=== PATIENT | female | born 1965 | race American Indian/Alaskan Native ===

== ENCOUNTER 2019-02-06 13:59 | Emergency (ER) | payer SELFPAY ==
--- NOTE | 2019-02-06 14:32 | Emergency Department Report ---
ED Abdominal Pain HPI - General Chief Complaint: Abdominal Pain Stated Complaint: ABD PAIN Time Seen by Provider: 02/06/19 14:29 Source: patient, EMS Mode of arrival: Stretcher Limitations: Language Barrier - History of Present Illness Initial Comments: Patient c/o RUQ abdominal pain which started this morning. MD Complaint: abdominal pain -: This morning Location: RUQ Radiation: back Severity: moderate Severity scale (0 -10): 6 Quality: sharp Consistency: constant Improves With: nothing Worsens With: nothing Associated Symptoms: nausea, vomiting. denies: diarrhea, fever, constipation, hematemesis, hematochezia, hematuria - Related Data Previous Rx's Medication Instructions Recorded Last Taken Type Ketorolac [Toradol] 10 mg PO Q8H PRN #15 tablet 02/06/19 Unknown Rx Ondansetron [Zofran Odt] 4 mg PO Q8HR PRN #20 tab.rapdis 02/06/19 Unknown Rx Allergies Allergy/AdvReac Type Severity Reaction Status Date / Time No Known Allergies Allergy Verified 02/06/19 14:14 ED Review of Systems ROS: Stated complaint: ABD PAIN Other details as noted in HPI Comment: All other systems reviewed and negative Constitutional: denies: chills, fever Eyes: denies: eye pain, eye discharge, vision change ENT: denies: ear pain, throat pain Respiratory: denies: cough, shortness of breath, wheezing Cardiovascular: denies: chest pain, palpitations Endocrine: no symptoms reported Gastrointestinal: abdominal pain, nausea, vomiting. denies: diarrhea, hemateme sis, hematochezia Genitourinary: denies: urgency, dysuria, discharge Musculoskeletal: denies: back pain, joint swelling, arthralgia Skin: denies: rash, lesions Neurological: denies: headache, weakness, paresthesias Psychiatric: denies: anxiety, depression Hematological/Lymphatic: denies: easy bleeding, easy bruising ED Past Medical Hx - Past Medical History Previous Medical History?: No - Surgical History Past Surgical History?: No - Social History Smoking Status: Never Smoker Substance Use Type: None - Medications Home Medications: Home Medications Medication Instructions Recorded Confirmed Last Taken Type Ketorolac [Toradol] 10 mg PO Q8H PRN #15 tablet 02/06/19 Unknown Rx Ondansetron [Zofran Odt] 4 mg PO Q8HR PRN #20 tab.rapdis 02/06/19 Unknown Rx ED Physical Exam - General Limitations: No Limitations General appearance: alert, in no apparent distress - Head Head exam: Present: atraumatic, normocephalic - Eye Eye exam: Present: normal appearance, PERRL, EOMI Pupils: Present: normal accommodation - ENT ENT exam: Present: normal exam, normal orophraynx, mucous membranes moist - Neck Neck exam: Present: normal inspection, full ROM. Absent: tenderness, meningismus - Respiratory Respiratory exam: Present: normal lung sounds bilaterally. Absent: respiratory distress, wheezes, rales, rhonchi - Cardiovascular Cardiovascular Exam: Present: regular rate, normal rhythm, normal heart sounds. Absent: systolic murmur, diastolic murmur, rubs, gallop - GI/Abdominal GI/Abdominal exam: Present: soft, tenderness (RUQ tenderness to palpation.), normal bowel sounds. Absent: distended - Rectal Rectal exam: Present: deferred - Extremities Exam Extremities exam: Present: normal inspection, full ROM, normal capillary refill. Absent: tenderness, pedal edema - Back Exam Back exam: Present: normal inspection, full ROM. Absent: tenderness, CVA tenderness (R), CVA tenderness (L) - Neurological Exam Neurological exam: Present: alert, oriented X3, CN II-XII intact - Psychiatric Psychiatric exam: Present: normal affect, normal mood - Skin Skin exam: Present: warm, dry, intact, normal color. Absent: rash ED Course Vital Signs 02/06/19 02/06/19 02/06/19 14:09 14:15 16:35 Temperature 97.7 F Pulse Rate 65 84 Respiratory 16 16 16 Rate Blood Pressure 133/68 Blood Pressure 133/68 120/78 [Left] O2 Sat by Pulse 98 98 Oximetry 02/06/19 18:20 Temperature Pulse Rate 60 Respiratory 16 Rate Blood Pressure Blood Pressure 118/67 [Left] O2 Sat by Pulse 99 Oximetry - Reevaluation(s) Reevaluation #1: 02/06/19 18:43 On reevaluation, patient is pain-free currently. I explained to her that she would need to follow-up with the general surgeon tomorrow morning for [place] evaluation and possible surgical intervention. - Consultations Consultation #1: 02/06/19 18:42 I consulted the General Surgeon talent development consultant Dr aFy and he recommend discharging patient with out patient follow up in his Clinic for further surgical evaluation. ED Medical Decision Making - Lab Data Result diagrams: 02/06/19 14:15 02/06/19 14:15 Lab Results 02/06/19 Range/Units 14:15 WBC 6.9 (4.5-11.0) K/mm3 RBC 4.51 (3.65-5.03) M/mm3 Hgb 14.5 H (10.1-14.3) gm/dl Hct 41.7 (30.3-42.9) % MCV 92 (79-97) fl MCH 32 (28-32) pg MCHC 35 H (30-34) % RDW 13.2 (13.2-15.2) % Plt Count 158 (140-440) K/mm3 Lymph % (Auto) 18.6 (13.4-35.0) % [place] % (Auto) 6.8 (0.0-7.3) % Eos % (Auto) 0.3 (0.0-4.3) % Baso % (Auto) 0.5 (0.0-1.8) % Lymph # 1.3 (1.2-5.4) K/mm3 [place] # 0.5 (0.0-0.8) K/mm3 Eos # 0.0 (0.0-0.4) K/mm3 Baso # 0.0 (0.0-0.1) K/mm3 Seg Neutrophils % 73.8 H (40.0-70.0) % Seg Neutrophils # 5.1 (1.8-7.7) K/mm3 Critical care attestation.: If time is entered above; I have spent that time in minutes in the direct care of this critically ill patient, excluding procedure time. ED Disposition Clinical Impression: RUQ abdominal pain, Nausea alone Cholelithiasis Qualifiers: Cholelithiasis location: gallbladder Cholecystitis presence: without cholecystitis Biliary obstruction: without biliary obstruction Qualified Code(s): K80.20 - Calculus of gallbladder without cholecystitis without obstruction Disposition: TO HOME OR SELFCARE Is pt being admited?: No Does the pt Need Aspirin: No Condition: Stable Instructions: Abdominal Pain (ED), Cholelithiasis (ED) Additional Instructions: Please follow up with Dr. fay (General Surgeon) tomorrow morning in his outpatient clinic. Return to the emergency room if her condition worsens. Prescriptions: Ketorolac [Toradol] 10 mg PO Q8H PRN #15 tablet PRN Reason: Pain Ondansetron [Zofran Odt] 4 mg PO Q8HR PRN #20 tab.rapdis PRN Reason: Nausea And Vomiting [facility] [Primary Care Provider] - 3-5 Days ANGELA FAY MD [Staff Physician] - 3-5 Days Time of Disposition: 18:46
[2019-02-06 14:34] LABS: Basophils % (Auto) 0.5 % (0.0-1.8); Eosinophils % (Auto) 0.3 % (0.0-4.3); Hematocrit 41.7 % (30.3-42.9); Hemoglobin 14.5 gm/dl (10.1-14.3); Lymphocytes # (Auto) 1.3 K/mm3 (1.2-5.4); Lymphocytes % (Auto) 18.6 % (13.4-35.0); Mean Corpuscular HGB Conc 35 % (30-34); Mean Corpuscular Volume 92 fl (79-97); Monocytes # (Auto) 0.5 K/mm3 (0.0-0.8); Monocytes % (Auto) 6.8 % (0.0-7.3); Platelet Count 158 K/mm3 (140-440); Red Blood Count 4.51 M/mm3 (3.65-5.03); Red Cell Distribution Width 13.2 % (13.2-15.2)
[2019-02-06] MEDS ORDERED: ZOFRAN IV ONE (14:42)
[2019-02-06] MEDS ORDERED: NACL 0.9% 1000 ML 1,000 ML IV ONE (14:42)
[2019-02-06] MEDS ORDERED: TORADOL IV ONE (14:43)
[2019-02-06 14:49] LABS: Bilirubin,Urine NEG (Negative); Blood,Urine NEG (Negative); Color,Urine Yellow (Yellow); Protein,Urine <15 mg/dL mg/dL (Negative); Urobilinogen,Urine < 2.0 mg/dL (<2.0)
[2019-02-06 14:49] LABS: BUN/Creatinine Ratio 10; Blood Urea Nitrogen 6 mg/dL (7-17); Calcium 9.3 mg/dL (8.4-10.2); Hemolysis Index 4
[2019-02-06 15:14] LABS: INR 1.04 (0.87-1.13); Partial Thromboplastin Time 25.8 Sec. (24.2-36.6)
[2019-02-06 15:26] LABS: Alanine Aminotransferase 23 units/L (7-56); Albumin 4.7 g/dL (3.9-5)
[2019-02-06 16:02] LABS: Bilirubin,Direct < 0.2 mg/dL (0-0.2)
--- NOTE | 2019-02-06 16:42 | Ultrasound Report ---
ULTRASOUND ABDOMEN, LIMITED (RIGHT UPPER QUADRANT) INDICATION: RUQ abdominal pain. COMPARISON: None available. FINDINGS: Pancreas: Visualized portion shows no significant abnormality. Liver: Normal. Gallbladder: There is a 2.6 cm stone in the gallbladder. No gallbladder wall edema or pericholecystic fluid. Bile ducts: Normal. Common Bile Duct measures 1-2 mm. Free fluid: None. Additional Findings: None. IMPRESSION: 1. 2.6 cm gallstone. No sonographic evidence of acute cholecystitis. No biliary dilatation. Signer Name: Nish Waters MD Signed: 02/06/2019 4:37 PM Workstation Name: [id number]
--- NOTE | 2019-02-06 16:53 | Cat Scan Report ---
CT ABDOMEN AND PELVIS WITH IV CONTRAST INDICATION: RUQ abdominal pain. COMPARISON: Abdominal ultrasound earlier today. TECHNIQUE: All CT scans at this facility use dose modulation, automated exposure control, iterative reconstructi on or weight based dosing, when appropriate, to reduce radiation dose to as low as reasonably achieva ble. FINDINGS: Lung Bases: Clear. Skeletal System: No acute abnormality. ABDOMEN: Liver: Normal. Gallbladder: There are 2 large stones in the gallbladder. The larger measures approximately 2 cm. The re is trace gallbladder wall edema. Bile Ducts: Normal. Pancreas: Normal. Spleen: Normal. Adrenals: Normal. Right Kidney: Normal. Left Kidney: Normal. Stomach and Bowel: Normal. Lymph Nodes: No significant adenopathy. Aorta: No significant abnormality. Additional Findings: None. PELVIS: Colon: Normal . Urinary Bladder and Distal Ureters: Normal. Appendix: Normal. Lymph Nodes: No significant adenopathy. Additional Findings: None. IMPRESSION: 1. There are 2 gallstones, the larger measures 2 cm. There is trace gallbladder wall edema. These fi ndings could be seen in the setting of mild acute cholecystitis. No intrahepatic or common duct dilat ation is seen. Signer Name: Nihs Waters MD Signed: 02/06/2019 4:49 PM Workstation Name: [id number]
[2019-02-06 18:20] VITALS: BP 118/67
== END 2019-02-06 19:07 | disposition home or self-care (01) ==
LOC: ED 13:59
DX: K80.20 Calculus of gallbladder without cholecystitis without obstruction (principal); Z79.899 Other long term (current) drug therapy
CPT/HCPCS: 36415; 74177; 76705; 80048; 80076; 81001; 83690; 85025; 85610; 85730; 96361; 96374; 96375; 99284; J1885; J2405; J7030; Q9967

== ENCOUNTER 2019-02-09 15:53 | Inpatient (IN) | payer OTHER ==
--- NOTE | 2019-02-09 16:23 | Event Note ---
ED Screening Note Date of service: 02/09/19 Time: 16:22 ED Screening Note: This is a 53 y.o. F. that presents to the ER with right sided abdominal pain. Patient diagnosed with Cholelithiasis 3 days ago and referral to General Surgeon. Patient states Dr. Jovel said it would be 1-2 weeks before completion of financial papers are approved for surgery. Patient states she is taking pain medication which help sometimes but pain returns shortly after. This initial assessment/diagnostic orders/clinical plan/treatment(s) is/are subject to change based on patients health status, clinical progression and re- assessment by fellow clinical providers in the ED. Further treatment and workup at subsequent clinical providers discretion. Patient/guardian urged not to elope from the ED as their condition may be serious if not clinically assessed and managed. Initial orders include: Labs
[2019-02-09 17:23] LABS: Basophils % (Auto) 0.4 % (0.0-1.8); Eosinophils # (Auto) 0.1 K/mm3 (0.0-0.4); Eosinophils % (Auto) 1.1 % (0.0-4.3); Hematocrit 37.8 % (30.3-42.9); Hemoglobin 12.9 gm/dl (10.1-14.3); Lymphocytes % (Auto) 8.1 % (13.4-35.0); Mean Corpuscular HGB Conc 34 % (30-34); Mean Corpuscular Volume 93 fl (79-97); Platelet Count 136 K/mm3 (140-440); Red Blood Count 4.05 M/mm3 (3.65-5.03); Red Cell Distribution Width 12.8 % (13.2-15.2)
[2019-02-09 17:39] LABS: Bacteria,Urine 4+ /HPF (Negative); Bilirubin,Urine NEG (Negative); Blood,Urine SM (Negative); Color,Urine Amber (Yellow); Mucus,Urine FEW /HPF; Urobilinogen,Urine < 2.0 mg/dL (<2.0)
[2019-02-09 17:46] LABS: Alanine Aminotransferase 14 units/L (7-56); Albumin 3.8 g/dL (3.9-5); BUN/Creatinine Ratio 11; Blood Urea Nitrogen 9 mg/dL (7-17); Calcium 9.4 mg/dL (8.4-10.2); Hemolysis Index 10
[2019-02-09 17:47] LABS: WBC,Urine > 182.0 /HPF (0.0-6.0)
[2019-02-09] MEDS ORDERED: NACL 0.9% 1000 ML 1,000 ML ONE (18:11)
[2019-02-09] MEDS ORDERED: MORPHINE IV ONE (20:07)
[2019-02-09] MEDS ORDERED: ZOSYN/NS 3.375GM/50ML 3.375 GM/50 ML BAG IV ONE (20:07)
[2019-02-09] MEDS ORDERED: NACL 0.9% 1000 ML 1,000 ML IV ONE (20:07)
[2019-02-09] MEDS ORDERED: ZOFRAN IV ONE (20:07)
--- NOTE | 2019-02-09 21:32 | Emergency Department Report ---
ED General Adult HPI - General Chief complaint: Abdominal Pain Stated complaint: ABD PAIN Time Seen by Provider: 02/09/19 16:20 Source: patient Mode of arrival: Ambulatory Limitations: No Limitations - History of Present Illness Initial comments: Patient presents to the emergency department with a chief complaint of increased abdominal pain over the last 2 days. Patient states she was here 2 days ago and was told that she had a gallstone. Patient states the medications she was given a home normal working. The patient speaks Croatian so an interpreter translator was used and her interpreter translator number is [id number]. -: Gradual Location: abdomen Severity scale (0 -10): 0 Consistency: constant Improves with: none Worsens with: none Associated Symptoms: denies other symptoms Treatments Prior to Arrival: none - Related Data Previous Rx's Medication Instructions Recorded Last Taken Type Ketorolac [Toradol] 10 mg PO Q8H PRN #15 tablet 02/06/19 02/09/19 Rx Ondansetron [Zofran Odt] 4 mg PO Q8HR PRN #20 tab.rapdis 02/06/19 02/09/19 Rx Allergies Allergy/AdvReac Type Severity Reaction Status Date / Time No Known Allergies Allergy Verified 02/06/19 14:14 ED Review of Systems ROS: Stated complaint: ABD PAIN Other details as noted in HPI Comment: All other systems reviewed and negative Constitutional: denies: chills, fever Eyes: denies: eye pain, eye discharge, vision change ENT: denies: ear pain, throat pain Respiratory: denies: cough, shortness of breath, wheezing Cardiovascular: denies: chest pain, palpitations Endocrine: no symptoms reported Gastrointestinal: abdominal pain. denies: nausea, diarrhea Genitourinary: denies: urgency, dysuria, discharge Musculoskeletal: denies: back pain, joint swelling, arthralgia Skin: denies: rash, lesions Neurological: denies: headache, weakness, paresthesias Psychiatric: denies: anxiety, depression Hematological/Lymphatic: denies: easy bleeding, easy bruising ED Past Medical Hx - Past Medical History Additional medical history: gallstones - Social History Smoking Status: Never Smoker Substance Use Type: None - Medications Home Medications: Home Medications Medication Instructions Recorded Confirmed Last Taken Type Ketorolac [Toradol] 10 mg PO Q8H PRN #15 tablet 02/06/19 02/09/19 02/09/19 Rx Ondansetron [Zofran Odt] 4 mg PO Q8HR PRN #20 tab.rapdis 02/06/19 02/09/19 02/09/19 Rx ED Physical Exam - General Limitations: No Limitations General appearance: alert, in no apparent distress - Head Head exam: Present: atraumatic, normocephalic - Eye Eye exam: Present: normal appearance - ENT ENT exam: Present: mucous membranes moist - Neck Neck exam: Present: normal inspection - Respiratory Respiratory exam: Present: normal lung sounds bilaterally. Absent: respiratory distress, wheezes, rales - Cardiovascular Cardiovascular Exam: Present: regular rate, normal rhythm. Absent: systolic murmur, diastolic murmur, rubs, gallop - GI/Abdominal GI/Abdominal exam: Present: soft, tenderness (Tenderness to palpation of right upper quadrant), normal bowel sounds. Absent: distended - Extremities Exam Extremities exam: Present: normal inspection - Back Exam Back exam: Present: normal inspection - Neurological Exam Neurological exam: Present: alert, oriented X3, CN II-XII intact. Absent: motor sensory deficit - Psychiatric Psychiatric exam: Present: normal affect, normal mood - Skin Skin exam: Present: warm, dry, intact, normal color, other (jaundice). Absent: rash ED Course Vital Signs 02/09/19 02/09/19 02/09/19 16:21 18:12 18:49 Temperature 97.4 F L 98.2 F Pulse Rate 75 92 H 68 Respiratory 18 18 18 Rate Blood Pressure 104/69 Blood Pressure 82/40 127/68 [Right] O2 Sat by Pulse 100 98 93 Oximetry 02/09/19 02/09/19 02/09/19 19:27 19:53 20:00 Temperature 98.1 F Pulse Rate 68 63 65 Respiratory 25 H 22 21 Rate Blood Pressure 111/61 117/69 Blood Pressure 107/65 [Right] O2 Sat by Pulse 99 100 100 Oximetry 02/09/19 02/09/19 02/09/19 20:20 20:50 22:00 Temperature Pulse Rate 67 Respiratory 16 16 13 Rate Blood Pressure 106/59 Blood Pressure [Right] O2 Sat by Pulse Oximetry ED Medical Decision Making - Lab Data Result diagrams: 02/09/19 16:52 02/09/19 16:52 Lab Results 02/09/19 02/09/19 02/09/19 Range/Units 16:52 16:52 17:15 WBC 12.9 H (4.5-11.0) K/mm3 RBC 4.05 (3.65-5.03) M/mm3 Hgb 12.9 (10.1-14.3) gm/dl Hct 37.8 (30.3-42.9) % MCV 93 (79-97) fl MCH 32 (28-32) pg MCHC 34 (30-34) % RDW 12.8 L (13.2-15.2) % Plt Count 136 L (140-440) K/mm3 Lymph % (Auto) 8.1 L (13.4-35.0) % [place] % (Auto) 8.0 H (0.0-7.3) % Eos % (Auto) 1.1 (0.0-4.3) % Baso % (Auto) 0.4 (0.0-1.8) % Lymph # 1.0 L (1.2-5.4) K/mm3 [place] # 1.0 H (0.0-0.8) K/mm3 Eos # 0.1 (0.0-0.4) K/mm3 Baso # 0.0 (0.0-0.1) K/mm3 Seg Neutrophils % 82.4 H (40.0-70.0) % Seg Neutrophils # 10.6 H (1.8-7.7) K/mm3 Sodium 129 L D (137-145) mmol/L Potassium 4.5 (3.6-5.0) mmol/L Chloride 92.8 L (98-107) mmol/L Carbon Dioxide 22 (22-30) mmol/L Anion Gap 19 mmol/L BUN 9 (7-17) mg/dL Creatinine 0.8 (0.7-1.2) mg/dL Estimated GFR > 60 ml/min BUN/Creatinine Ratio 11 % Glucose 139 H (65-100) mg/dL Lactic Acid (0.7-2.0) mmol/L Calcium 9.4 (8.4-10.2) mg/dL Total Bilirubin 2.10 H (0.1-1.2) mg/dL AST 16 (5-40) units/L ALT 14 (7-56) units/L Alkaline Phosphatase 93 (35-129) units/L Total Protein 8.0 (6.3-8.2) g/dL Albumin 3.8 L (3.9-5) g/dL Albumin/Globulin Ratio 0.9 % Lipase 24 (13-60) units/L Urine Color Mey (Yellow) Urine Turbidity Turbid (Clear) Urine pH 6.0 (5.0-7.0) Ur Specific [place] 1.015 (1.003-1.030) Urine Protein 30 mg/dl (Negative) mg/dL Urine Glucose (UA) Neg (Negative) mg/dL Urine Ketones Neg (Negative) mg/dL Urine Blood Sm (Negative) Urine Nitrite Neg (Negative) Urine Bilirubin Neg (Negative) Urine Urobilinogen < 2.0 (<2.0) mg/dL Ur Leukocyte Esterase Mod (Negative) Urine WBC (Auto) > 182.0 H (0.0-6.0) /HPF Urine RBC (Auto) 29.0 (0.0-6.0) /HPF U Epithel Cells (Auto) 19.0 H (0-13.0) /HPF Urine Bacteria (Auto) 4+ (Negative) /HPF Urine WBC Clumps 3+ /HPF Urine Mucus Few /HPF Urine Yeast (Budding) 1+ /HPF / Range/Units 20:03 WBC (4.5-11.0) K/mm3 RBC (3.65-5.03) M/mm3 Hgb (10.1-14.3) gm/dl Hct (30.3-42.9) % MCV (79-97) fl MCH (28-32) pg MCHC (30-34) % RDW (13.2-15.2) % Plt Count (140-440) K/mm3 Lymph % (Auto) (13.4-35.0) % [place] % (Auto) (0.0-7.3) % Eos % (Auto) (0.0-4.3) % Baso % (Auto) (0.0-1.8) % Lymph # (1.2-5.4) K/mm3 [place] # (0.0-0.8) K/mm3 Eos # (0.0-0.4) K/mm3 Baso # (0.0-0.1) K/mm3 Seg Neutrophils % (40.0-70.0) % Seg Neutrophils # (1.8-7.7) K/mm3 Sodium (137-145) mmol/L Potassium (3.6-5.0) mmol/L Chloride (98-107) mmol/L Carbon Dioxide (22-30) mmol/L Anion Gap mmol/L BUN (7-17) mg/dL Creatinine (0.7-1.2) mg/dL Estimated GFR ml/min BUN/Creatinine Ratio % Glucose (65-100) mg/dL Lactic Acid 1.40 (0.7-2.0) mmol/L Calcium (8.4-10.2) mg/dL Total Bilirubin (0.1-1.2) mg/dL AST (5-40) units/L ALT (7-56) units/L Alkaline Phosphatase (35-129) units/L Total Protein (6.3-8.2) g/dL Albumin (3.9-5) g/dL Albumin/Globulin Ratio % Lipase (13-60) units/L Urine Color (Yellow) Urine Turbidity (Clear) Urine pH (5.0-7.0) Ur Specific [place] (1.003-1.030) Urine Protein (Negative) mg/dL Urine Glucose (UA) (Negative) mg/dL Urine Ketones (Negative) mg/dL Urine Blood (Negative) Urine Nitrite (Negative) Urine Bilirubin (Negative) Urine Urobilinogen (<2.0) mg/dL Ur Leukocyte Esterase (Negative) Urine WBC (Auto) (0.0-6.0) /HPF Urine RBC (Auto) (0.0-6.0) /HPF U Epithel Cells (Auto) (0-13.0) /HPF Urine Bacteria (Auto) (Negative) /HPF Urine WBC Clumps /HPF Urine Mucus /HPF Urine Yeast (Budding) /HPF - Radiology Data Radiology results: report reviewed - Medical Decision Making Discussed results with the patient through interpreter translator code [id number] Spoke with Dr. Briggs who will see patient as a legal consultant Critical care attestation.: If time is entered above; I have spent that time in minutes in the direct care of this critically ill patient, excluding procedure time. ED Disposition Clinical Impression: Acute cholecystitis, UTI (urinary tract infection), Total bilirubin, elevated Disposition: DC-09 OP ADMIT IP TO THIS HOSP Is pt being admited?: Yes Does the pt Need Aspirin: No Condition: Fair [facility]OE[facility] [Primary Care Provider] - 3-5 Days
--- NOTE | 2019-02-09 22:32 | Ultrasound Report ---
ULTRASOUND ABDOMEN, LIMITED (RIGHT UPPER QUADRANT) INDICATION: ruq ab pain with elevated bili. COMPARISON: None available. FINDINGS: Pancreas: Visualized portion shows no significant abnormality. Liver: Normal. Gallbladder: Gallstones in neck of the gallbladder. The wall is thickened and edematous. Bile ducts: Normal. Common Bile Duct measures 0.1 mm. Free fluid: None. Additional Findings: None. IMPRESSION: Gallstone with suspected cholecystitis. Signer Name: Travon Phillips MD Signed: 02/09/2019 10:28 PM Workstation Name: [id number]
[2019-02-10] MEDS ORDERED: MORPHINE IV PRN (00:10)
[2019-02-10] MEDS ORDERED: TYLENOL PO PRN (00:10)
[2019-02-10] MEDS ORDERED: PERCOCET 5/325 PO PRN (00:10)
[2019-02-10] MEDS ORDERED: SODIUM CHLORIDE FLUSH SYRINGE 10 ML IV PRN (00:10)
[2019-02-10] MEDS ORDERED: ZOFRAN IV PRN (00:10)
--- NOTE | 2019-02-10 00:15 | History and Physical Report ---
History of Present Illness Chief complaint: Abdominal pain History of present illness: 53-year-old woman who presents to the emergency room with abdominal pain 2 days it has been associated with nausea and vomiting. Patient has a history of cholelithiasis in the past. She Dutch speaking and history was taking using an disc recordist. She was apparently seen in the emergency room a few days ago treated with pain medications and antiemetics and sent home. She presented worsening symptoms. Abdominal pain has been generalized and localizing to right upper quadrant, 8 out of 10, dull in nature, radiating to her scapula. Past medical history denies any chronic medical problems besides cholelithiasis Past surgical history denies major surgeries as Social history denies smoking alcohol or illicit drug use Family history; noncontributory, hypertension and a few family members Constitutional: Anorexia and weaknessEyes: bilateral: other (no complaint of visual problems.) Ears, nose, mouth and throat: mouth pain, no ear pain, no ear discharge, no decreased hearing, no nose pain, no nasal congestion, no bleeding gums, no dental pain, no dysphagia, no hoarseness, no sore throat Cardiovascular: no orthopnea, no palpitations, no rapid/irregular heart beat, no phlebitis Respiratory: no cough with sputum, no excessive sputum, no hemoptysis, no wheezing, no pleurisy, no pain Gastrointestinal: Anorexia, abdominal pain, nausea and vomiting Rectal: no pain, no incontinence, no bleeding Musculoskeletal: no neck stiffness, no neck pain, no shooting arm pain, no arm numbness/tingling, no low back pain, no shooting leg pain, no leg numbness/tingling Integumentary: no pruritis, no redness, no sores Neurological: no transient paralysis, no paralysis, no weakness Psychiatric: no memory loss, no change in sleep habits, no disorientation Endocrine: no heat intolerance, no polyphagia Hematologic/Lymphatic: no easy bruising, no easy bleeding Allergic/Immunologic: no allergic rhinitis Medications and Allergies Allergies Allergy/AdvReac Type Severity Reaction Status Date / Time No Known Allergies Allergy Verified 02/06/19 14:14 Home Medications Medication Instructions Recorded Confirmed Last Taken Type Ketorolac [Toradol] 10 mg PO Q8H PRN #15 tablet 02/06/19 02/09/19 02/09/19 Rx Ondansetron [Zofran Odt] 4 mg PO Q8HR PRN #20 tab.rapdis 02/06/19 02/09/19 02/09/19 Rx Active Meds: Active Medications Acetaminophen (Tylenol) 650 mg PO Q4H PRN PRN Reason: Pain MILD(1-3)/Fever >100.5/NICKERSON Sodium Chloride (Nacl 0.9% 1000 Ml) 1,000 mls @ 125 mls/hr IV DIRECT CYNDI Morphine Sulfate (Morphine) 2 mg IV Q4H PRN PRN Reason: Pain, Moderate (4-6) Ondansetron HCl (Zofran) 4 mg IV Q8H PRN PRN Reason: Nausea And Vomiting Oxycodone/Acetaminophen (Percocet 5/325) 1 tab PO Q6H PRN PRN Reason: Pain, Moderate (4-6) Sodium Chloride (Sodium Chloride Flush Syringe 10 Ml) 10 ml IV BID CYNDI Sodium Chloride (Sodium Chloride Flush Syringe 10 Ml) 10 ml IV PRN PRN PRN Reason: LINE FLUSH Exam - Constitutional Vitals: Temp Pulse Resp BP Pulse Ox 98.1 F 60 21 124/64 100 02/09/19 19:27 02/10/19 00:00 02/10/19 00:00 02/10/19 00:00 02/10/19 00:00 General appearance: Present: mild distress, well-nourished - EENT Eyes: Present: PERRL, scleral icterus ENT: hearing intact, clear oral mucosa - Neck Neck: Present: supple, normal ROM - Respiratory Respiratory effort: normal Respiratory: bilateral: CTA - Cardiovascular Heart Sounds: Present: S1 & S2. Absent: rub, click - Extremities Extremities: pulses symmetrical, No edema Peripheral Pulses: within normal limits - Abdominal General gastrointestinal: Present: soft, tender (and right upper quadrants), non-distended, normal bowel sounds Female genitourinary: Present: normal - Integumentary Integumentary: Present: clear, warm, dry - Musculoskeletal Musculoskeletal: gait normal, strength equal bilaterally - Psychiatric Psychiatric: appropriate mood/affect, intact judgment & insight - Neurologic Neurologic: CNII-XII intact, moves all extremities Results - Labs CBC & Chem 7: 02/09/19 16:52 02/09/19 16:52 Labs: Laboratory Last Values WBC 12.9 K/mm3 (4.5-11.0) H 02/09/19 16:52 RBC 4.05 M/mm3 (3.65-5.03) 02/09/19 16:52 Hgb 12.9 gm/dl (10.1-14.3) 02/09/19 16:52 Hct 37.8 % (30.3-42.9) 02/09/19 16:52 MCV 93 fl (79-97) 02/09/19 16:52 MCH 32 pg (28-32) 02/09/19 16:52 MCHC 34 % (30-34) 02/09/19 16:52 RDW 12.8 % (13.2-15.2) L 02/09/19 16:52 Plt Count 136 K/mm3 (140-440) L 02/09/19 16:52 Lymph % (Auto) 8.1 % (13.4-35.0) L 02/09/19 16:52 Knox % (Auto) 8.0 % (0.0-7.3) H 02/09/19 16:52 Eos % (Auto) 1.1 % (0.0-4.3) 02/09/19 16:52 Baso % (Auto) 0.4 % (0.0-1.8) 02/09/19 16:52 Lymph # 1.0 K/mm3 (1.2-5.4) L 02/09/19 16:52 Knox # 1.0 K/mm3 (0.0-0.8) H 02/09/19 16:52 Eos # 0.1 K/mm3 (0.0-0.4) 02/09/19 16:52 Baso # 0.0 K/mm3 (0.0-0.1) 02/09/19 16:52 Seg Neutrophils % 82.4 % (40.0-70.0) H 02/09/19 16:52 Seg Neutrophils # 10.6 K/mm3 (1.8-7.7) H 02/09/19 16:52 Sodium 129 mmol/L (137-145) L D 02/09/19 16:52 Potassium 4.5 mmol/L (3.6-5.0) 02/09/19 16:52 Chloride 92.8 mmol/L (98-107) L 02/09/19 16:52 Carbon Dioxide 22 mmol/L (22-30) 02/09/19 16:52 19 mmol/L 02/09/19 16:52 BUN 9 mg/dL (7-17) 02/09/19 16:52 0.8 mg/dL (0.7-1.2) 02/09/19 16:52 Estimated GFR > 60 ml/min 02/09/19 16:52 11 % 02/09/19 16:52 Glucose 139 mg/dL (65-100) H 02/09/19 16:52 Lactic Acid 1.40 mmol/L (0.7-2.0) 02/09/19 20:03 Calcium 9.4 mg/dL (8.4-10.2) 02/09/19 16:52 2.10 mg/dL (0.1-1.2) H 02/09/19 16:52 AST 16 units/L (5-40) 02/09/19 16:52 ALT 14 units/L (7-56) 02/09/19 16:52 93 units/L (35-129) 02/09/19 16:52 8.0 g/dL (6.3-8.2) 02/09/19 16:52 3.8 g/dL (3.9-5) L 02/09/19 16:52 0.9 % 02/09/19 16:52 24 units/L (13-60) 02/09/19 16:52 Mey (Yellow) 02/09/19 17:15 Turbid (Clear) 02/09/19 17:15 6.0 (5.0-7.0) 02/09/19 17:15 Ur Specific Hume 1.015 (1.003-1.030) 02/09/19 17:15 30 mg/dl mg/dL (Negative) 02/09/19 17:15 Neg mg/dL (Negative) 02/09/19 17:15 Neg mg/dL (Negative) 02/09/19 17:15 Sm (Negative) 02/09/19 17:15 Neg (Negative) 02/09/19 17:15 Neg (Negative) 02/09/19 17:15 < 2.0 mg/dL (<2.0) 02/09/19 17:15 Ur Leukocyte Esterase Mod (Negative) 02/09/19 17:15 > 182.0 /HPF (0.0-6.0) H 02/09/19 17:15 29.0 /HPF (0.0-6.0) 02/09/19 17:15 U Epithel Cells (Auto) 19.0 /HPF (0-13.0) H 02/09/19 17:15 4+ /HPF (Negative) 02/09/19 17:15 3+ /HPF 02/09/19 17:15 Few /HPF 02/09/19 17:15 1+ /HPF 02/09/19 17:15 - Imaging and Cardiology US - abdomen: image reviewed (cholecystitis) Assessment and Plan Assessment and plan: 53-year-old Dutch-speaking woman who presents to the hospital with nausea vomiting abdominal pain Sepsis Continue sepsis protocol Acute cholecystitis Gen. surgery consult, keep nothing by mouth for possible cholecystectomy in the a.m. UTI Antibiotics, follow-up urine cultures Hyponatremia Normal saline DVT prophylaxis Lovenox
[2019-02-10] MEDS ORDERED: NACL 0.9% 1000 ML 1,000 ML ONE (00:29)
[2019-02-10] MEDS: NACL 0.9% 1000 ML 1,000 ML IV SCH ×2 (00:41→22:33)
--- NOTE | 2019-02-10 07:33 | Consultation ---
History of Present Illness Consult date: 02/10/19 Reason for consult: gallstones Chief complaint: abdominal pain - History of present illness History of present illness: 53 yo F with no PMHx presented to ER with c/o severe, sharp, RUQ pain radiating to her back x 4 days. The pain started suddenly and is now constant. She had this pain before 3 years ago but it went away. This time when the pain initially started she presented to ER and was found to have gallstones. She was discharged with oral pain medication. She states this did not help with her pain so she returned to the ER. She did have 1-2 episodes of nausea and vomiting when the pain first started. No f/c, cp, sob. Past History Past Medical History: No medical history Past Surgical History: , Other (tubal ligation) Social history: no significant social history Family history: no significant family history Medications and Allergies Allergies Allergy/AdvReac Type Severity Reaction Status Date / Time No Known Allergies Allergy Verified 02/06/19 14:14 Home Medications Medication Instructions Recorded Confirmed Last Taken Type Ketorolac [Toradol] 10 mg PO Q8H PRN #15 tablet 02/06/19 02/09/19 02/09/19 Rx Ondansetron [Zofran Odt] 4 mg PO Q8HR PRN #20 tab.rapdis 02/06/19 02/09/19 02/09/19 Rx Active Meds: Active Medications Acetaminophen (Tylenol) 650 mg PO Q4H PRN PRN Reason: Pain MILD(1-3)/Fever >100.5/NICKERSON Enoxaparin Sodium (Lovenox) 40 mg SUB-Q QDAY CYNDI Sodium Chloride (Nacl 0.9% 1000 Ml) 1,000 mls @ 125 mls/hr IV DIRECT CYNDI Last Admin: 02/10/19 00:41 Dose: 125 mls/hr Documented by: Morphine Sulfate (Morphine) 2 mg IV Q4H PRN PRN Reason: Pain, Moderate (4-6) Last Admin: 02/10/19 02:11 Dose: 2 mg Documented by: Ondansetron HCl (Zofran) 4 mg IV Q8H PRN PRN Reason: Nausea And Vomiting Last Admin: 02/10/19 02:11 Dose: 4 mg Documented by: Oxycodone/Acetaminophen (Percocet 5/325) 1 tab PO Q6H PRN PRN Reason: Pain, Moderate (4-6) Sodium Chloride (Sodium Chloride Flush Syringe 10 Ml) 10 ml IV BID CYNDI Sodium Chloride (Sodium Chloride Flush Syringe 10 Ml) 10 ml IV PRN PRN PRN Reason: LINE FLUSH Review of Systems All systems: negative (10 pt ROS performed and negative except for that listed in HPI) Exam Vital Signs Temp Pulse Resp BP Pulse Ox 97.4 F L 75 18 104/69 100 02/09/19 16:21 02/09/19 16:21 02/09/19 16:21 02/09/19 16:21 02/09/19 16:21 Narrative exam: Gen: AAOx3. NAD ENT: no scleral icterus or conjunctival pallor CV; s1, S2+ resp; even and unlabored Abd: soft, ND, + TTP RUQ. no r/r/g Ext: no c/c/e Results - Labs 02/09/19 16:52 02/09/19 16:52 Abnormal lab results 02/09/19 02/09/19 02/09/19 Range/Units 16:52 16:52 17:15 WBC 12.9 H (4.5-11.0) K/mm3 RDW 12.8 L (13.2-15.2) % Plt Count 136 L (140-440) K/mm3 Lymph % (Auto) 8.1 L (13.4-35.0) % Jessamine % (Auto) 8.0 H (0.0-7.3) % Lymph # 1.0 L (1.2-5.4) K/mm3 Jessamine # 1.0 H (0.0-0.8) K/mm3 Seg Neutrophils % 82.4 H (40.0-70.0) % Seg Neutrophils # 10.6 H (1.8-7.7) K/mm3 Sodium 129 L D (137-145) mmol/L Chloride 92.8 L (98-107) mmol/L Glucose 139 H (65-100) mg/dL Total Bilirubin 2.10 H (0.1-1.2) mg/dL Albumin 3.8 L (3.9-5) g/dL Urine WBC (Auto) > 182.0 H (0.0-6.0) /HPF U Epithel Cells (Auto) 19.0 H (0-13.0) /HPF Diabetes panel 02/09/19 Range/Units 16:52 Sodium 129 L D (137-145) mmol/L Potassium 4.5 (3.6-5.0) mmol/L Chloride 92.8 L (98-107) mmol/L Carbon Dioxide 22 (22-30) mmol/L BUN 9 (7-17) mg/dL Creatinine 0.8 (0.7-1.2) mg/dL Glucose 139 H (65-100) mg/dL Calcium 9.4 (8.4-10.2) mg/dL AST 16 (5-40) units/L ALT 14 (7-56) units/L Alkaline Phosphatase 93 (35-129) units/L Total Protein 8.0 (6.3-8.2) g/dL Albumin 3.8 L (3.9-5) g/dL Calcium panel 02/09/19 Range/Units 16:52 Calcium 9.4 (8.4-10.2) mg/dL Albumin 3.8 L (3.9-5) g/dL Pituitary panel 02/09/19 Range/Units 16:52 Sodium 129 L D (137-145) mmol/L Potassium 4.5 (3.6-5.0) mmol/L Chloride 92.8 L (98-107) mmol/L Carbon Dioxide 22 (22-30) mmol/L BUN 9 (7-17) mg/dL Creatinine 0.8 (0.7-1.2) mg/dL Glucose 139 H (65-100) mg/dL Calcium 9.4 (8.4-10.2) mg/dL Adrenal panel 02/09/19 Range/Units 16:52 Sodium 129 L D (137-145) mmol/L Potassium 4.5 (3.6-5.0) mmol/L Chloride 92.8 L (98-107) mmol/L Carbon Dioxide 22 (22-30) mmol/L BUN 9 (7-17) mg/dL Creatinine 0.8 (0.7-1.2) mg/dL Glucose 139 H (65-100) mg/dL Calcium 9.4 (8.4-10.2) mg/dL Total Bilirubin 2.10 H (0.1-1.2) mg/dL AST 16 (5-40) units/L ALT 14 (7-56) units/L Alkaline Phosphatase 93 (35-129) units/L Total Protein 8.0 (6.3-8.2) g/dL Albumin 3.8 L (3.9-5) g/dL - Imaging CT scan - abdomen: report reviewed, image reviewed CT scan - pelvis: report reviewed, image reviewed US - abdomen: report reviewed, image reviewed Assessment and Plan 53 yo F with acute cholecystitis Plan; 1. repeat cmp, bilirubin stat 2. NPO 3. IVF 4. IV abx - on zosyn 5. DVT ppx 6. prn pain and nausea control 7. Discussed all risks, benefits, alternatives to cholecystectomy with patient and her family at the bedside using Valchemycigarette lighter repairer line. Questions answered and consent obtained. Possible OR today pending lab results. Thank you, please call with questions.
[2019-02-10 08:49] LABS: Alanine Aminotransferase 25 units/L (7-56); Albumin 3.4 g/dL (3.9-5); BUN/Creatinine Ratio 9; Bilirubin,Direct 0.6 mg/dL (0-0.2); Blood Urea Nitrogen 6 mg/dL (7-17); Calcium 8.8 mg/dL (8.4-10.2); Hemolysis Index 2
[2019-02-10] MEDS ORDERED: XYLOCAINE 1% 20 mL ONE (09:14)
[2019-02-10] MEDS ORDERED: MARCAINE 0.5% INFILTRATI ONE ×2 (09:14→11:09)
[2019-02-10] MEDS ORDERED: DILAUDID ONE (09:45)
[2019-02-10] MEDS ORDERED: VERSED ONE (09:46)
[2019-02-10] MEDS ORDERED: DIPRIVAN 10 MG/ML IV ONE (09:46)
[2019-02-10] MEDS ORDERED: DECADRON ONE (09:47)
[2019-02-10] MEDS ORDERED: ZOFRAN ONE (09:47)
[2019-02-10] MEDS ORDERED: ZEMURON IV ONE ×2 (09:47→11:57)
[2019-02-10] MEDS ORDERED: XYLOCAINE MPF 2% ONE (09:48)
[2019-02-10] MEDS ORDERED: SODIUM CHLORIDE FLUSH SYRINGE 10 ML IV SCH (10:00)
[2019-02-10] MEDS ORDERED: LOVENOX SUB-Q SCH (10:00)
--- NOTE | 2019-02-10 10:10 | Anesthesia Consultation ---
Anesthesia Consult and Med Hx Date of service: 02/10/19 - Airway Anesthetic Teeth Evaluation: Dentures ROM Head & Neck: Adequate Mental/Hyoid Distance: Adequate Mallampati Class: Class II Intubation Access Assessment: Good - Pulmonary Exam CTA: Yes - Cardiac Exam Cardiac Exam: RRR - Pre-Operative Health Status ASA Pre-Surgery Classification: ASA2 Proposed Anesthetic Plan: General - Pulmonary Hx Asthma: No COPD: No Hx Pneumonia: No - Central Nervous System Hx Psychiatric Problems: No - Endocrine Hx End Stage Renal Disease: No
--- NOTE | 2019-02-10 10:11 | Anesthesia Day of Surgery ---
Anesthesia Day of Surgery - Day of Surgery Patient Examined: Yes Patient H&P Reviewed: Yes Patient is NPO: Yes
[2019-02-10] MEDS ORDERED: LACTATED RINGERS 1,000 ML IV SCH (10:15)
[2019-02-10] MEDS ORDERED: DILAUDID IV PRN (11:00)
[2019-02-10] MEDS ORDERED: XYLOCAINE 1% 20 mL INFILTRATI ONE (11:10)
[2019-02-10] MEDS ORDERED: NACL 0.9% IR ONE (11:11)
[2019-02-10] MEDS ORDERED: WATER FOR IRRIG STERILE IR ONE (11:11)
[2019-02-10] MEDS ORDERED: NACL 0.9% 250ML 250 ML ONE (11:16)
[2019-02-10] MEDS ORDERED: ANCEF/STERILE WATER 2 GM/20 ML IV NR (11:30)
[2019-02-10] MEDS ORDERED: PHENYLEPHRINE/NS Syringe 1,000 MCG/10 ML IV ONE (11:35)
[2019-02-10] MEDS ORDERED: LACTATED RINGERS 1,000 ML ONE (11:37)
[2019-02-10] MEDS ORDERED: BLOXIVERZ ONE (13:15)
[2019-02-10] MEDS ORDERED: ROBINUL ONE (13:15)
--- NOTE | 2019-02-10 13:44 | Post Operative Note ---
Date of procedure: 02/10/19 Pre-op diagnosis: acute cholecystitis Post-op diagnosis: same Findings: 1. gallbladder with extensive adhesions to omentum, duodenum 2. gallbladder with very thickened gallbladder wall 3. multiple giant stones in gallbladder 4. distended gallbladder Procedure: robotic assisted subtotal cholecystectomy, lysis of adhesions Anesthesia: GETA, local Surgeon: TAMARA PAYNE (refinery operator assistant; Dr. Carmelina Silva) Director Of [employer]: ANGELA FAY (cosurgeon) Estimated blood loss: 50-100ml Pathology: list (gallbladder) Specimen disposition: to lab Condition: stable Disposition: PACU
--- NOTE | 2019-02-10 14:11 | Event Note ---
Date: 02/10/19 Patient admitted earlier this morning for the management of cholecystitis. Patient is on IV antibiotics. General surgery was consulted and did surgery this morning.
--- NOTE | 2019-02-10 20:17 | Operative Report ---
PREOPERATIVE DIAGNOSIS: Acute cholecystitis. POSTOPERATIVE DIAGNOSIS: Acute on chronic calculous cholecystitis. FINDINGS: 1. Gallbladder with extensive thick adhesions to the omentum and duodenum. 2. Gallbladder with very thickened gallbladder wall. 3. Multiple giant stones in the gallbladder. 4. Distended gallbladder. PROCEDURE: Robotic-assisted subtotal cholecystectomy and lysis of adhesions. ANESTHESIA: General endotracheal anesthesia, local. SURGEON: Lamar Briggs DO. COSURGEON: Yovanny Jovel MD STORE SALES LEADER: Tenzin Silva MD ESTIMATED BLOOD LOSS: 50 mL. PATHOLOGY: Gallbladder. SPECIMEN DISPOSITION: To lab. CONDITION ON DISCHARGE: The patient is stable to PACU. HISTORY OF PRESENT ILLNESS AND INDICATION: The patient is a 53-year-old female presented to the Emergency Room with acute onset right upper quadrant pain radiating to her back. She had an elevated white blood cell count and imaging, which included an ultrasound of her abdomen showed a gallbladder with thickened wall, multiple stones and concerns for acute cholecystitis. Common bile duct was normal. A cholecystectomy was recommended along with intraoperative cholangiogram. Since the patient's total bilirubin was mildly elevated, mostly indirect. All risks, benefits and alternatives were discussed with the patient using the asl interpreter line and consent obtained. All questions were answered. PROCEDURE IN DETAIL: The patient was identified in the preoperative area and taken back to the operating room and placed on the operating table in supine position. After anesthesia was induced, the right arm was tucked and all bony prominences padded appropriately. The abdomen was then prepped and draped in the usual sterile fashion. A timeout was performed. Local anesthetic was infiltrated into all skin incision sites. An incision was made above the umbilicus through which a Veress needle was inserted. Veress needle position was confirmed using the saline drop test and the abdomen insufflated to 15 mmHg. Once the abdomen was insufflated, the Veress needle was removed and 12 mm Optiview balloon trocar was placed through this incision. The abdomen was inspected. There was no underlying injury to any of the abdominal structures. Of note, there were extensive adhesions from the omentum to the falciform ligament to the top of the right lobe of the liver as well as to the anterior abdominal wall. The gallbladder was completely obscured by these adhesions. The patient was placed in reverse Trendelenburg and tilted to the left. Two additional 8 mm robotic trocars were placed in the right abdomen and one 8 mm robotic trocar in the left upper abdomen. A Ray-Dayron was placed into the abdomen and the robot docked. A monopolar hook was placed in arm #1 and a Cadiere grasper in arm #2 and ProGrasp in arm #3. The surgeon was then transferred to the console. I first started by performing an extensive lysis of adhesions in order to visualize the gallbladder. The omentum was very inflamed and densely adhered to the liver as well as the gallbladder. These adhesions were taken down very meticulously along with adhesions from the omentum to the right lobe of the liver, anterior abdominal wall and to the falciform ligament. Lysis of adhesions took a total of 45 minutes in total. Once the adhesions were taken down enough to visualize the gallbladder, the gallbladder appeared extremely inflamed with a thickened wall and distended. The gallbladder was very large and delved deep to the duodenum. There were also with thickened adhesions and scar tissue from the duodenum to the neck of the gallbladder. The gallbladder was first decompressed by the miller head assistant wet process surgeon, Dr. Silva using a laparoscopic needle and a syringe. A 30 mL of light green bile were removed from the gallbladder. The needle was then withdrawn. The gallbladder was then dissected from the liver using a dome down approach due to the neck being obscured by thick adhesions to the duodenum. Of note, the liver was very friable and there was punctate bleeding from the entire dissection bed. At this point, I scrubbed back in order to place an additional 5 mm miller head assistant wet process port in the left mid abdomen under direct visualization. A 5 mm trocar was placed. At this at this point, Dr. Jovel during the case as Dr. Silva had to leave. The lateral and medial peritoneal attachments were also dissected in order to continue a dome down approach. Once the neck of the gallbladder was reached, the peritoneum was incised across here in order to better expose the wall of the gallbladder and very carefully from the duodenum. The Calot's lymph node was also identified and was extremely friable and inflamed and enlarged. Due to the nature of the thickened adhesions to vital structures at the neck of the gallbladder, making it impossible to determine anatomy at the site, it was decided to transect the gallbladder just proximal to this area in a safe location. First, a PDS Endoloop was placed around the gallbladder and cinched down at the neck of the gallbladder. The robot was then undocked and the surgeon scrubbed back in. The remainder of the case was performed laparoscopically. Using an Ethicon 60 mm powered stapler green load, the gallbladder was transected just distal to where the Endoloop was placed. This took two loads. The gallbladder was then placed in the right upper quadrant and the liver bed examined. There was a small pouch of the gallbladder left behind, which appears healthy and may contain a large stone. However, there was no bleeding or bile leakage from the stump. The liver bed was irrigated and hemostasis was ensured. The structures surrounding the gallbladder fossa were intact without injury. The gallbladder was then placed into EndoCatch bag and Abdullahi powder was sprayed in the gallbladder fossa and liver bed. Any remaining fluid was suctioned from Morison's pouch. The gallbladder was then removed via the 12 mm port, which had to be extended from the skin all the way down to the fascia in order to remove the gallbladder. The gallbladder was palpated and contained two or more giant stones filling the entire gallbladder. This was passed off the table as a specimen. The abdomen was once again inspected and there was no bleeding or bile leakage in the gallbladder fossa or from the liver bed. The remaining ports were then removed under direct visualization and the abdomen desufflated. Prior to this, the Ray-Dayron was removed from the abdomen. The 12 mm port fascia was closed in a running fashion using 0 Vicryl suture. The skin incisions were infiltrated with local anesthetic and closed with 4-0 Monocryl subcuticular stitches and skin glue. At the end of the case, all sponge, instrument, sharp counts were correct x 2. The patient was awoken from anesthesia, extubated, and taken to PACU in stable condition. JOB# [id number] SHIVANI/HOSEA
[2019-02-10] MEDS: PERCOCET 5/325 PO PRN (22:35)
[2019-02-11 05:08] LABS: Basophils % (Auto) 0.1 % (0.0-1.8); Hemoglobin 10.4 gm/dl (10.1-14.3); Lymphocytes # (Auto) 0.5 K/mm3 (1.2-5.4); Lymphocytes % (Auto) 4.2 % (13.4-35.0); Mean Corpuscular HGB Conc 35 % (30-34); Mean Corpuscular Volume 93 fl (79-97); Monocytes # (Auto) 0.8 K/mm3 (0.0-0.8); Monocytes % (Auto) 6.8 % (0.0-7.3); Platelet Count 136 K/mm3 (140-440); Red Blood Count 3.22 M/mm3 (3.65-5.03); Red Cell Distribution Width 12.8 % (13.2-15.2)
[2019-02-11 05:24] LABS: Alanine Aminotransferase 28 units/L (7-56); BUN/Creatinine Ratio 13; Bilirubin,Direct 0.3 mg/dL (0-0.2); Blood Urea Nitrogen 8 mg/dL (7-17); Calcium 8.6 mg/dL (8.4-10.2); Hemolysis Index 0
[2019-02-11] MEDS: PERCOCET 5/325 PO PRN (05:31)
--- NOTE | 2019-02-11 08:59 | Discharge Summary ---
<TAMARA PAYNE - Last Filed: 02/11/19 09:37> Providers - Providers Date of Admission: 02/10/19 00:10 Attending physician: TOMA SPENCE MD 02/09/19 22:53 Consult to Physician [CONS] Routine Comment: Dr. Oneal spoke with Dr. Payne @ 3022 Consulting Provider: TAMARA PAYNE Physician Instructions: Reason For Exam: Cholecystitis [facility] Condition: Stable Disposition: DC-01 TO HOME OR SELFCARE Exam - Constitutional Vitals: Temp Pulse Resp BP Pulse Ox 97.8 F 58 L 18 114/63 95 02/11/19 07:42 02/11/19 07:42 02/11/19 07:42 02/11/19 07:42 02/11/19 07:42 Plan Activity: other (no heavy lifting of more than 15-20 lbs until seen by Dr. Payne. No driving if taking pain medications.) Additional Instructions: You may shower, pat incisions dry, do not scrub. Call Dr. Payne's office if you have any questions. Follow up with: BRIAN HALLMCKENZIE MD ZOEY [Primary Care Provider] - 3-5 Days TAMARA PAYNE DO [Staff Physician] - 14 Days Prescriptions: oxyCODONE /ACETAMINOPHEN [Percocet 5/325 mg] 2 tab PO Q6H PRN #12 tablet PRN Reason: Pain, Moderate (4-6) <TOMA SPENCE - Last Filed: 02/13/19 16:41> Providers - Providers Date of Admission: 02/10/19 00:10 Date of discharge: 02/11/19 Attending physician: TOMA SPENCE MD 02/09/19 22:53 Consult to Physician [CONS] Routine Comment: Dr. Oneal spoke with Dr. Payne @ [id number] Consulting Provider: TAMARA PAYNE Physician Instructions: Reason For Exam: Cholecystitis [facility] Reason for admission: acute cholecystitis Hospital course: Patient was admitted to the floor for the management of cholecystitis with cholelithiasis. patient was treated with Iv antibiotics and General Surgery was consulted and did laparascopic cholecystectomy was done and discharged home in a stable condition. Time spent for discharge: 32 minutes - Discharge Diagnoses (1) Acute cholecystitis Status: Acute (2) Total bilirubin, elevated Status: Acute (3) UTI (urinary tract infection) Status: Ruled-out (4) Cholelithiasis Status: Acute Qualifiers: Cholelithiasis location: gallbladder Cholecystitis presence: without cholecystitis Biliary obstruction: without biliary obstruction Qualified Code(s): K80.20 - Calculus of gallbladder without cholecystitis without obstruction (5) RUQ abdominal pain Status: Acute Core Measure Documentation - Palliative Care Palliative Care/ Comfort Measures: Not Applicable - Core Measures Any of the following diagnoses?: none Exam - Constitutional Vitals: Temp Pulse Resp BP Pulse Ox 98.6 F 67 18 96/50 96 02/11/19 04:06 02/11/19 04:06 02/11/19 04:06 02/11/19 04:06 02/11/19 04:06 General appearance: Present: no acute distress, obese - EENT Eyes: Present: PERRL ENT: hearing intact, clear oral mucosa - Neck Neck: Present: supple, normal ROM - Respiratory Respiratory effort: normal Respiratory: bilateral: CTA - Cardiovascular Heart Sounds: Present: S1 & S2. Absent: rub, click - Extremities Extremities: pulses symmetrical, No edema Peripheral Pulses: within normal limits - Abdominal General gastrointestinal: Present: soft, non-tender, non-distended, normal bowel sounds Female genitourinary: Present: deferred - Musculoskeletal Musculoskeletal: gait normal, strength equal bilaterally - Psychiatric Psychiatric: appropriate mood/affect, intact judgment & insight - Neurologic Neurologic: CNII-XII intact, moves all extremities Plan Activity: no restrictions Weight Bearing Status: Full Weight Bearing Diet: low fat
--- NOTE | 2019-02-11 10:46 | Progress Note ---
Assessment and Plan 53 yo F s/p robotic assisted subtotal cholecystectomy, lysis of adhesions, POD 1 PLan: 1. adv to soft diet 2. IVF 3. prn PO pain control 4. IS/pulm toilet 5. May be discharged from surgery standpoint. Does not need antibiotics on dc. Pt instructed to follow up with me in office in 2 weeks. Printed discharge instruction in romansh left on chart. Thank you, please call with questions. Subjective Date of service: 02/11/19 Narrative: Pt seen and examined. No acute complaints. Minimal pain. No f/c. Tolerating diet. Objective Vital Signs - 12hr 02/10/19 02/11/19 02/11/19 23:53 04:06 07:42 Temperature 97.2 F L 98.6 F 97.8 F Pulse Rate 67 67 58 L Respiratory 18 18 18 Rate Blood Pressure 96/54 96/50 114/63 O2 Sat by Pulse 96 96 95 Oximetry - General physical appearance Narrative Exam: Gen: AAOx3. NAD CV: s1, S2+ resp: even and unlabored Abd: soft, NT, ND. incisions c/d/i Ext: no c/c/e - Labs 02/11/19 04:44 02/11/19 04:44 Diabetes panel 02/11/19 Range/Units 04:44 Sodium 134 L (137-145) mmol/L Potassium 4.3 (3.6-5.0) mmol/L Chloride 100.5 (98-107) mmol/L Carbon Dioxide 23 (22-30) mmol/L BUN 8 (7-17) mg/dL Creatinine 0.6 L (0.7-1.2) mg/dL Glucose 240 H (65-100) mg/dL Calcium 8.6 (8.4-10.2) mg/dL AST 41 H (5-40) units/L ALT 28 (7-56) units/L Alkaline Phosphatase 117 (35-129) units/L Total Protein 6.8 (6.3-8.2) g/dL Albumin 3.0 L (3.9-5) g/dL Calcium panel 02/11/19 Range/Units 04:44 Calcium 8.6 (8.4-10.2) mg/dL Albumin 3.0 L (3.9-5) g/dL Pituitary panel 02/11/19 Range/Units 04:44 Sodium 134 L (137-145) mmol/L Potassium 4.3 (3.6-5.0) mmol/L Chloride 100.5 (98-107) mmol/L Carbon Dioxide 23 (22-30) mmol/L BUN 8 (7-17) mg/dL Creatinine 0.6 L (0.7-1.2) mg/dL Glucose 240 H (65-100) mg/dL Calcium 8.6 (8.4-10.2) mg/dL Adrenal panel 02/11/19 Range/Units 04:44 Sodium 134 L (137-145) mmol/L Potassium 4.3 (3.6-5.0) mmol/L Chloride 100.5 (98-107) mmol/L Carbon Dioxide 23 (22-30) mmol/L BUN 8 (7-17) mg/dL Creatinine 0.6 L (0.7-1.2) mg/dL Glucose 240 H (65-100) mg/dL Calcium 8.6 (8.4-10.2) mg/dL Total Bilirubin 0.90 (0.1-1.2) mg/dL AST 41 H (5-40) units/L ALT 28 (7-56) units/L Alkaline Phosphatase 117 (35-129) units/L Total Protein 6.8 (6.3-8.2) g/dL Albumin 3.0 L (3.9-5) g/dL
[2019-02-11 14:33] VITALS: BP 105/60
== END 2019-02-11 15:00 | disposition home or self-care (01) | DRG 854 ==
LOC: ED 15:53 → 3B-SURG 02-10 00:10
PROVIDERS: ADMIT Internal Medicine; ATTEND Internal Medicine
PROC: 0FT44ZZ Resection of Gallbladder, Percutaneous Endoscopic Approach (ICD-10-PCS; principal; 2019-02-10)
PROC: 0DNU4ZZ Release Omentum, Percutaneous Endoscopic Approach (ICD-10-PCS; 2019-02-10)
PROC: 0DN94ZZ Release Duodenum, Percutaneous Endoscopic Approach (ICD-10-PCS; 2019-02-10)
PROC: 8E0W4CZ Robotic Assisted Procedure of Trunk Region, Percutaneous Endoscopic Approach (ICD-10-PCS; 2019-02-10)
DX: A41.9 Sepsis, unspecified organism (principal); E87.1 Hypo-osmolality and hyponatremia; K80.12 Calculus of gallbladder with acute and chronic cholecystitis without obstruction; K82.8 Other specified diseases of gallbladder; Z82.49 Family history of ischemic heart disease and other diseases of the circulatory system
CPT/HCPCS: 36415; 76705; 80048; 80053; 80076; 81001; 82140; 82247; 82248; 83690; 85025; 87040; 87086; 88304; 99285; G0378; J0690; J1100; J1170; J2250; J2270; J2370; J2405; J2543; J2704; J2710; J7030; J7050; J7120

== ENCOUNTER 2020-08-02 06:04 | Emergency (ER) | payer SELFPAY ==
--- NOTE | 2020-08-02 07:34 | Emergency Department Report ---
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 She has not checked her temperature, but she has felt warm. She denies any sick contacts or travel. She known past medical history, current medications or known allergies to medications. There is associated loss of taste occasionally but she does smell, body aches with worse pain in her back which she states is due to sleeping a lot . She denies any chest pain, SOB, nausea, vomiting, diarrhea, loss of taste or smell, - Related Data Previous Rx's Medication Instructions Recorded Last Taken Type Ketorolac [Toradol] 10 mg PO Q8H PRN #15 tablet 02/06/19 02/09/19 Rx Ondansetron [Zofran ODT TAB] 4 mg PO Q8HR PRN #20 tab.rapdis 02/06/19 02/09/19 Rx oxyCODONE /ACETAMINOPHEN [Percocet 2 tab PO Q6H PRN #12 tablet 02/11/19 Unknown Rx 5/325 mg] Albuterol Sulfate [Proair 90 mcg IH Q4HR #1 aer.pw.bas 08/02/20 Unknown Rx Digihaler] dexAMETHasone [Decadron] 4 mg PO Q6H #20 tablet 08/02/20 Unknown Rx Allergies Allergy/AdvReac Type Severity Reaction Status Date / Time No Known Allergies Allergy Verified 02/06/19 14:14 ED Review of Systems ROS: Stated complaint: FEVER/COUGH Other details as noted in HPI Comment: All other systems reviewed and negative Constitutional: denies: chills, fever Eyes: denies: eye pain, eye discharge, vision change ENT: denies: ear pain, throat pain Respiratory: denies: cough, shortness of breath, wheezing Cardiovascular: denies: chest pain, palpitations Endocrine: no symptoms reported Gastrointestinal: denies: abdominal pain, nausea, diarrhea Genitourinary: denies: urgency, dysuria, discharge Musculoskeletal: denies: back pain, joint swelling, arthralgia Skin: denies: rash, lesions Neurological: denies: headache, weakness, paresthesias Psychiatric: denies: anxiety, depression Hematological/Lymphatic: denies: easy bleeding, easy bruising ED Past Medical Hx - Past Medical History Previous Medical History?: Yes Hx Congestive Heart Failure: No Hx Diabetes: No Hx Asthma: No Hx COPD: No Hx HIV: No Additional medical history: gallstones - Surgical History Past Surgical History?: No - Social History Smoking Status: Never Smoker Substance Use Type: None - Medications Home Medications: Home Medications Medication Instructions Recorded Confirmed Last Taken Type Ketorolac [Toradol] 10 mg PO Q8H PRN #15 tablet 02/06/19 02/09/19 02/09/19 Rx Ondansetron [Zofran ODT TAB] 4 mg PO Q8HR PRN #20 tab.rapdis 02/06/19 02/09/19 02/09/19 Rx oxyCODONE /ACETAMINOPHEN [Percocet 2 tab PO Q6H PRN #12 tablet 02/11/19 Unknown Rx 5/325 mg] Albuterol Sulfate [Proair 90 mcg IH Q4HR #1 aer.pw.bas 08/02/20 Unknown Rx Digihaler] dexAMETHasone [Decadron] 4 mg PO Q6H #20 tablet 08/02/20 Unknown Rx ED Physical Exam - General Limitations: No Limitations General appearance: alert, in no apparent distress - Head Head exam: Present: atraumatic, normocephalic, normal inspection - Eye Eye exam: Present: normal appearance, PERRL, EOMI Pupils: Present: normal accommodation - ENT ENT exam: Present: normal exam, normal orophraynx, mucous membranes moist - Neck Neck exam: Present: normal inspection, full ROM. Absent: tenderness - Respiratory Respiratory exam: Present: normal lung sounds bilaterally, other (no increased work of breathing ). Absent: respiratory distress, wheezes, rales, rhonchi, stridor, chest wall tenderness - Cardiovascular Cardiovascular Exam: Present: regular rate, normal rhythm, normal heart sounds. Absent: systolic murmur, diastolic murmur, rubs, gallop - GI/Abdominal GI/Abdominal exam: Present: soft, normal bowel sounds. Absent: distended, tenderness, guarding, rebound, rigid - Extremities Exam Extremities exam: Present: normal inspection, full ROM, normal capillary refill. Absent: tenderness, calf tenderness (no posterior calf tenderness, negative martha sign bilaterally ) - Back Exam Back exam: Present: normal inspection, full ROM. Absent: tenderness, CVA tenderness (R), CVA tenderness (L) - Neurological Exam Neurological exam: Present: alert, oriented X3, normal gait - Psychiatric Psychiatric exam: Present: normal affect, normal mood - Skin Skin exam: Present: warm, dry, intact, normal color. Absent: rash ED Course Vital Signs 08/02/20 08/02/20 08/02/20 06:41 08:00 08:02 Temperature 97.0 F L 98.2 F Pulse Rate 84 79 Respiratory 20 17 17 Rate Blood Pressure 96/58 Blood Pressure 104/65 [Left] O2 Sat by Pulse 94 95 95 Oximetry - Reevaluation(s) Reevaluation #1: 08/02/20 09:37 The patient was ambulated via 5 minute walk test and did not have any desaturations below 90%. She was comfortable with going home and will discharged with decadron, inhalers, and recommended OTC vitamin C, vitamin D, zinc, tumeric and keeping a close eye on her oxygen saturation. if she has a persistently low O2 saturation below 90% she needs to return to the ED. The patient and her son were agree able to this plan and all questions were answered. ED Medical Decision Making - Radiology Data Radiology results: report reviewed, image reviewed interpreted by me: patchy peripheral opacities consistent with covid pneumonia - Medical Decision Making The patient is nontoxic and in no distress. Vitals are stable. x-ray consistent with covid-19. She had no O2 desaturations on ambulation and felt comfortable going home with supportive care. they were agreeable to monitoring the O2 and will return with persistently low O2 or changing or worsening symptoms. 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 - Differential Diagnosis COVID, Pneumonia, PE Critical care attestation.: If time is entered above; I have spent that time in minutes in the direct care of this critically ill patient, excluding procedure time. ED Disposition Clinical Impression: COVID-19 Disposition: DC-01 TO HOME OR SELFCARE Is pt being admited?: No Condition: Stable Instructions: COVID-19 Frequently Asked Questions Prescriptions: dexAMETHasone [Decadron] 4 mg PO Q6H #20 tablet Albuterol Sulfate [Proair Digihaler] 90 mcg IH Q4HR #1 aer.pw.bas Referrals: FISH MAHMOOD MD [Primary Care Provider] - 3-5 Days Time of Disposition: 09:48
[2020-08-02 08:02] VITALS: BP 104/65
--- NOTE | 2020-08-02 10:44 | XRay Report ---
CHEST 2 VIEWS INDICATION: cough. COMPARISON: None available FINDINGS: Support devices: None. Heart: Within normal limits. Lungs/pleura: There are diffuse scattered bilateral lung opacities concerning for viral infection or atypical pneumonia. No pleural effusion or pneumothorax. Additional findings: None. IMPRESSION: Diffuse bilateral lung opacities concerning for viral infection. Signer Name: Wesley Winston Jr, MD Signed: 08/02/2020 8:02 AM Workstation Name: [id number]
== END 2020-08-02 09:56 | disposition home or self-care (01) ==
LOC: ED 06:04
DX: U07.1 COVID-19 (principal); Z79.899 Other long term (current) drug therapy
CPT/HCPCS: 71046; 99282